=== PATIENT | female | born 1970 | race Caucasian/White ===

== ENCOUNTER 2017-03-27 15:22 | Emergency (ER) | payer OTHER ==
--- NOTE | ~2017-03-27 | CR63 ---
[facility] A Service of [facility] RADIOLOGY TEXT RESULTS PATIENT: FIDELIA GARZA LOCATION: CFTX : 74 UNIT #: [id number] AGE: [address]: Brianna Jameson SEX: F ORDER DR: [id number] [facility] [address] [place], [place] [address] [id number] E MR#: [id number] Acc #: [id number] NAME: FIDELIA GARZA : 1970 SEX: F STUDY DATE/TIME: 03/27/2017 16:44 UNIT: [facility] ROOM: STUDY DESCRIPTION: CR Chest 2 View Attending Physician: Brianna Jameson P.A.-C. Ordering Physician: Brianna Jameson P.A.-C. [facility] RE[facility] This report is preliminary unless electronic signature is present EXAM Two-view chest, 03/27/2017. HISTORY 46-year-old female with cough and congestion beginning yesterday. Essential hypertension. COMPARISON None. FINDINGS Two views of the chest demonstrate clear lungs. No pleural effusion or pneumothorax. Heart size and mediastinum are normal. Pulmonary vasculature normal. IMPRESSION No acute cardiopulmonary findings. Dictated by... Walker Bustos M.D. THIS IS AN ELECTRONICALLY VERIFIED REPORT Walker Bustos M.D. at 03/30/2017 2:50 PM Charlie TD: 03/27/2017 21:31 JOB #: [id number] MEDICAL IMAGING REPORT Page 1 of 1 COPY
[~2017-03-27 15:22] MED LIST: ATENOLOL PO; FLEXERIL PO; HYDROCODONE-APA1 T30 PO; IBUPROFEN PO; KETOPROFEN PO; KLONOPIN PO; LAMICTAL PO; LANTUS100 U/ML SUBQ; LORTAB 7.5-5001 TAB PO; MEDROL PO; NAPROXEN PO; NORCO 7.5/325 T1 TAB PO; NOVOLOG100 U/M1 SQ; PEN-VEE K PO; PENICILLIN V P500 MG PO; REQUIP1 MG PO; ULTRAM PO; VICODIN 5/500 T1 TAB PO
[2017-03-27 16:34] LABS: BASOPHIL% 0.6 % (0-2.5); EOSINOPHIL# 0.1 X10e3 (0-0.7); EOSINOPHIL% 2.1 % (0.0-7.0); HEMOGLOBIN 15.6 gm/dL (12.0-16.0); LYMPHOCYTE# 2.6 X10e3 (1.0-3.5); LYMPHOCYTE% 42.5 % (17.0-45.0); MEAN CELL VOLUME 86.2 FL (83-96); MEAN CORPUSCULAR HEMOGLOBIN 28.1 PG (28-34); MEAN CORPUSCULAR HGB CONC 32.6 g/dL (30-36); MEAN PLATELET VOLUME 9.5 FL (6.5-11.5); MONOCYTE# 0.7 X10e3 (0-1.0); MONOCYTE% 10.9 % (3.0-12.0); NEUTROPHIL# 2.6 X10e3 (1.5-7.1); NEUTROPHIL% 43.9 % (40-75); PLATELET COUNT 105 X10e3 (140-420); RED BLOOD COUNT 5.56 X10e (3.90-5.30); RED CELL DISTRIBUTION WIDTH 15.5 % (11.0-15.5)
[2017-03-27 16:35] LABS: DIFF IND NO
[2017-03-27 16:54] LABS: BUN/CREATININE RATIO 11.11; CALCIUM SERUM 8.5 mg/dL (8.4-10.2); CREATININE SERUM 0.9 mg/dL (0.6-1.4); GLOM FILT RATE Estimated 77.8 mL/min (>60); POTASSIUM 3.4 mmol/L (3.5-5.1)
== END 2017-03-27 18:20 | disposition home or self-care (01) ==
LOC: CFTX 15:22 → CED 15:22 → CFTX 16:18
PROVIDERS: Physician Assistant
DX: J45.901 Unspecified asthma with (acute) exacerbation (principal); H60.12 Cellulitis of left external ear; E11.9 Type 2 diabetes mellitus without complications; J44.9 Chronic obstructive pulmonary disease, unspecified; Z90.49 Acquired absence of other specified parts of digestive tract; Z98.51 Tubal ligation status; F17.210 Nicotine dependence, cigarettes, uncomplicated; Z88.5 Allergy status to narcotic agent; Z79.899 Other long term (current) drug therapy; Z79.4 Long term (current) use of insulin
CPT/HCPCS: 36415; 71020; 80048; 85025; 87040; 94640; 96365; 99284